=== PATIENT | female | born 1940 | race Caucasian/White ===

== ENCOUNTER → 2017-12-23 09:06 | Outpatient (CLI) | payer MEDICARE, SELFPAY ==
--- NOTE | 2017-12-23 09:11 | MM_ITS ---
MM Dig screening mamm BI w/CAD CAD Screening ORDERING PHYSICIAN : Matt Franz MD PATIENT AGE: 77 years GENDER: Female COMPARISON: Previous mammograms: 20 INDICATION: . No hormones no new complaints. Previous cyst aspiration left breast. Family history. Sister with breast cancer age 68 TECHNIQUE: Standard CC and MLO images were obtained. R2 CAD reviewed. FINDINGS: Moderately dense breast bilaterally . Stable appearing mild asymmetry . No dominant mass nor suspicious calcifications RIGHT BREAST:No new areas of concern LEFT BREAST:. No new areas of concern The mild asymmetry most notable at central left breast cc view and superior breast MLO view appear similar to previous study IMPRESSION: No significant interval change No new areas of concern Follow-up in one year recommended BI-RADS Category: 2 Benign Finding(s) RECOMMENDED FOLLOW-UP: 1YR - 1 YEAR FOLLOW-UP (A letter has been sent to the patient regarding results of the study.)
== END ==
PROVIDERS: Visit Provider Nurse Practitioner Obstetrics & Gynecology
DX: Z12.31 Encounter for screening mammogram for malignant neoplasm of breast (principal)
CPT/HCPCS: 77067

== ENCOUNTER → 2018-05-04 10:31 | Outpatient (CLI) | payer MEDICARE, SELFPAY ==
--- NOTE | 2018-05-04 10:34 | XR_ITS ---
XR DEXA axial skeleton HISTORY: ITS.REASON: POST MENOPAUSAL ORDERING PHYSICIAN: Carlos Manuel Walker MD PATIENT AGE: 78 years COMPARISON: 12/21/2012 FINDINGS: The BMD measured at the right Femoral neck is 0.763 g/cm squared with a T score of -2.0. This is considered Osteopenic according to the World Health Organization criteria. Fracture risk is Moderate. Treatment is advised. L1 L4 density has T score of 0.3. L-spine density has decreased by 1.3% and hip density has decreased by 13.6% compared to the previous exam IMPRESSION: Osteopenia with moderate fracture risk. Treatment recommended. Recommend follow-up exam April 2020
== END ==
PROVIDERS: Family Provider Family Medicine; PCP Family Medicine; Visit Provider Family Medicine
DX: Z78.0 Asymptomatic menopausal state (principal)
CPT/HCPCS: 77080

== ENCOUNTER → 2018-06-23 09:25 | Outpatient (POV) | payer MEDICARE, SELFPAY | PROVIDERS: Family Provider Family Medicine; PCP Family Medicine; Visit Provider Dermatology | DX: Z00.00 Encounter for general adult medical examination without abnormal findings (principal) ==

== ENCOUNTER → 2018-12-30 09:17 | Outpatient (CLI) | payer MEDICARE, SELFPAY ==
--- NOTE | 2018-12-30 09:27 | MM_ITS ---
MM Dig screening mamm BI w/CAD ORDERING PHYSICIAN : Matt Franz MD PATIENT AGE: 78 years GENDER: Female COMPARISON: November, 2016, December 2017 bilateral distal mammogram studies INDICATION: .: Routine Screening Mammogram. No hormones no new complaints Previous cyst aspiration left breast Family history. Sister with breast cancer age 78. TECHNIQUE: Standard CC and MLO images were obtained. R2 CAD reviewed. Additional axillary cc views bilaterally FINDINGS: Mammography is of decreased sensitivity in breast of this dense heterogeneous somewhat nodular character . Areas of dense breast most evident towards upper-outer quadrant and dense breast for this age patient. Age breast bilaterally for age. Minimal nodularity bilaterally most evident at the left breast. However the overall pattern is very similar and is not changed significantly since studies dating back to 2017. RIGHT BREAST:No new areas of significant concern Areas of mild asymmetry appear stable including a small area of parenchymal density inferior right breast. The dense tissue at the lateral breast is similar. Axillary cc view helpful in supporting stability. LEFT BREAST no new areas of significant concern Today's MLO view appears stable when compared to 2016, and 2015 :Stable intramammary node again noted at the far upper-outer quadrant left breast . If any palpable areas arise in either breast low threshold for ultrasound of the warranted and appropriate to to compliment and augment mammography.. -------IMPRESSION: Dense heterogeneous breast pattern again noted, which decreases sensitivity of mammography. No Appreciable change since prior studies. Ongoing Bilateral follow-up in one year recommended . ( Self breast exam encouraged. If any palpable areas arise ultrasound would be useful compliment to mammography in breast of this denser heterogeneous architecture) BI-RADS Category: 2 Benign Finding(s) RECOMMENDED FOLLOW-UP: 1YR 1 YEAR FOLLOW-UP (A letter has been sent to the patient regarding results of the study.) .
== END ==
PROVIDERS: PCP Family Medicine; Visit Provider Nurse Practitioner Obstetrics & Gynecology
DX: Z12.31 Encounter for screening mammogram for malignant neoplasm of breast (principal)
CPT/HCPCS: 77067

== ENCOUNTER → 2019-07-18 14:04 | Outpatient (POV) | payer MEDICARE, SELFPAY | PROVIDERS: Visit Provider Dermatology | DX: Z00.00 Encounter for general adult medical examination without abnormal findings (principal) ==

== ENCOUNTER → 2020-01-01 09:33 | Outpatient (CLI) | payer MEDICARE, SELFPAY ==
--- NOTE | 2020-01-01 09:33 | MM_ITS ---
PROCEDURE: MM DIG SCREENING MAMM BI W/CAD CLINICAL INDICATION: screening xmg There is a history of breast cancer patient's 2 sisters both diagnosed after menopause. COMPARISON: [facility] DIG MAMM-SCREEN [facility] W/CAD from 12/21/2016 [facility] MM Dig screening mamm BI w/CAD from 12/23/2017 [facility] MM Dig screening mamm BI w/CAD from 12/30/2018 TECHNIQUE: Standard CC and MLO images and 3D Tomosynthesis was obtained. R2 CAD reviewed. FINDINGS: Moderate diffuse somewhat heterogenic fibroglandular densities are seen throughout both breast and the findings are fairly symmetrical and bilateral. Glenn images were reviewed showing no suspicious abnormality. There is benign-appearing calcification left breast. No suspicious microcalcifications. IMPRESSION: Moderate somewhat diffuse breast density with no suspicious lesions seen BI-RAD Category: 2 Benign Finding(s) FOLLOW-UP: 1YR 1 Year Follow-up (A letter has been sent to the patient regarding results of the study.) Dictated by: Dr. Osmin Valdez MD 01/02/2020 13:[address] Osmin Valdez MD in [place] 01/02/2020 13:33
== END ==
PROVIDERS: PCP Family Medicine; Visit Provider Nurse Practitioner Obstetrics & Gynecology
DX: Z12.31 Encounter for screening mammogram for malignant neoplasm of breast (principal)
CPT/HCPCS: 77063; 77067

== ENCOUNTER → 2021-01-27 08:18 | Outpatient (CLI) | payer MEDICARE, SELFPAY ==
--- NOTE | 2021-01-27 08:19 | MM_ITS ---
PROCEDURE: MM DIG SCREENING MAMM BI W/CAD Digital Breast Tomosynthesis Included CLINICAL INDICATION: screening xmg There is a history of breast cancer in the patient's sister diagnosed after menopause. COMPARISON: MG [facility] MM Dig screening mamm BI w/CAD from 12/23/2017 MG [facility] MM Dig screening mamm BI w/CAD from 12/30/2018 MG MM DIG SCREENING MAMM BI W/CAD from 01/01/2020 TECHNIQUE: Standard CC and MLO images and 3D Tomosynthesis was obtained. R2 CAD reviewed. FINDINGS: There is a diffusely dense and somewhat heterogenic parenchymal pattern. There is a stable asymmetric benign-appearing density upper-outer quadrant left breast. Glenn images are helpful in this type of dense breast parenchyma. There is no suspicious lesion and no suspicious microcalcifications. IMPRESSION: Stable moderate breast density with no suspicious lesions seen BI-RAD Category: 2 Benign Finding(s) FOLLOW-UP: 1YR 1 Year Follow-up (A letter has been sent to the patient regarding results of the study.) Dictated by: Dr. Osmin Valdez MD 02/01/2021 15:41 Dr. Osmin Valdez MD in [place] 02/01/2021 15:41
== END ==
PROVIDERS: PCP Family Medicine; Visit Provider Nurse Practitioner Obstetrics & Gynecology
DX: Z12.31 Encounter for screening mammogram for malignant neoplasm of breast (principal)
CPT/HCPCS: 77063; 77067

== ENCOUNTER → 2021-05-09 09:41 | Outpatient (CLI) | payer MEDICARE, SELFPAY ==
--- NOTE | 2021-05-09 09:45 | XR_ITS ---
PROCEDURE: XR CHEST 2V CLINICAL HISTORY: R05 COMPARISON: CR CXR CHEST(2 VIEWS-NOT PORTABLE) from 04/27/2013 CR CXR CHEST(2 VIEWS-NOT PORTABLE) from 03/07/2014 FINDINGS: Heart size is normal. Lungs are clear. No pleural effusion or pneumothorax. No acute bony abnormality. IMPRESSION: No acute cardiopulmonary disease. Dictated by: Mehrdad Collins MD 05/09/2021 10:06 Mehrdad Collins MD in [place] 05/09/2021 10:06
== END ==
PROVIDERS: PCP Family Medicine; Visit Provider Family Medicine
DX: R05 Cough (principal)
CPT/HCPCS: 71046

== ENCOUNTER → 2021-11-21 08:53 | Outpatient (CLI) | payer MEDICARE, SELFPAY ==
--- NOTE | 2021-11-21 08:59 | XR_ITS ---
FINAL REPORT TECHNIQUE: Bone densitometry calculations of the lumbar spine, left forearm and right hip were obtained. CLINICAL HISTORY: OSTEOPENIA FINDINGS: Using L1-4, the bone mineral density of the spine is 1.139 g/cm2, corresponding to T-score of 0.8. Using the right hip, the bone mineral density of the femoral neck is 0.707 g/cm2, corresponding to a T-score of -1.3. Using the left forearm, the bone mineral density of the distal third is 0.562 g/cm2, corresponding to a T-score of -2.2. IMPRESSION: Normal bone mineral density of the lumbar spine. This may be artificially elevated due to hypertrophic changes. Osteopenic bone mineral density of the right femoral neck and the left forearm. FRAX = 13 percent risk for major osteoporotic fracture. Reviewed, Interpreted and Dictated by Bobby Alexander MD Transcribed by Spring Dominguez Authenticated by Bobby Alexander MD on 11/25/2021 12:13:48 PM [facility]
--- NOTE | 2021-11-21 09:00 | XR_ITS ---
PROCEDURE INFORMATION: Exam: XR Left Shoulder Exam date and time: 11/21/2021 9:00 AM Age: 81 years old Clinical indication: Pain; Shoulder; Left; Additional info: Pain in left shoulder TECHNIQUE: Imaging protocol: XR Left shoulder. Views: 2 or more views. COMPARISON: CR XR CHEST 2V 05/09/2021 9:55 AM FINDINGS: Bones/joints: No acute fracture or malalignment. Moderate acromioclavicular and glenohumeral joint degenerative changes. Osteopenia. Soft tissues: Normal. IMPRESSION: No acute fracture or malalignment.
== END ==
PROVIDERS: PCP Family Medicine; Visit Provider Family Medicine
DX: M25.512 Pain in left shoulder (principal); M85.89 Other specified disorders of bone density and structure, multiple sites
CPT/HCPCS: 73030; 77080

== ENCOUNTER → 2022-01-29 08:15 | Outpatient (CLI) | payer MEDICARE, SELFPAY ==
--- NOTE | 2022-01-29 08:15 | MM_ITS ---
PROCEDURE INFORMATION: Exam: MG Bilateral Screening 3D Mammography Exam date and time: 01/29/2022 8:15 AM Age: 81 years old Clinical indication: Encounter for screening mammogram for malignant neoplasm of breast; Additional info: Screening xmg. Family history of breast carcinoma. TECHNIQUE: Imaging protocol: Bilateral Screening tomosynthesis and 2D mammography including computer-aided detection (CAD) when performed. COMPARISON: 1. MG MM DIG SCREENING MAMM BI W/CAD 01/27/2021 8:26 AM 2. MG MM DIG SCREENING MAMM BI W/CAD 01/01/2020 9:49 AM 3. MG [facility] MM Dig screening mamm BI w/CAD 12/30/2018 9:34 AM FINDINGS: MAMMOGRAPHY: Breast composition: The breasts are heterogeneously dense, which may obscure small masses. Mass: No suspicious masses. Architectural distortion: No suspicious distortion. Calcifications: No suspicious calcifications. Asymmetric density: None. Skin thickening: None. Axillary adenopathy: None. IMPRESSION: No mammographic evidence of malignancy. Annual screening is recommended unless otherwise clinically indicated. ASSESSMENT: BI-RADS Category 1: Negative
== END ==
PROVIDERS: PCP Family Medicine; Visit Provider Nurse Practitioner Obstetrics & Gynecology
DX: Z12.31 Encounter for screening mammogram for malignant neoplasm of breast (principal)
CPT/HCPCS: 77063; 77067

== ENCOUNTER → 2023-02-04 12:35 | Outpatient (CLI) | payer MEDICARE, SELFPAY ==
--- NOTE | 2023-02-04 12:35 | MM_ITS ---
PROCEDURE INFORMATION: Exam: MG Bilateral Screening 3D Mammography Exam date and time: 02/04/2023 12:50 PM Age: 82 years old Clinical indication: Screening examination TECHNIQUE: Imaging protocol: Bilateral Screening tomosynthesis and 2D mammography including computer-aided detection (CAD) when performed. COMPARISON: 1. MG MM DIG SCREENING MAMM BI W/CAD 01/29/2022 8:23 AM 2. MG MM DIG SCREENING MAMM BI W/CAD 01/27/2021 8:26 AM FINDINGS: MAMMOGRAPHY: Breast composition: The breasts are heterogeneously dense, which may obscure small masses. Mass: None. Architectural distortion: None. Calcifications: No suspicious calcifications. Asymmetric density: None. Skin thickening: None. Axillary adenopathy: None. IMPRESSION: No mammographic evidence of malignancy. Annual screening is recommended unless otherwise clinically indicated. ASSESSMENT: BI-RADS Category 1: Negative
== END ==
PROVIDERS: PCP Family Medicine; Visit Provider Nurse Practitioner Obstetrics & Gynecology
DX: Z12.31 Encounter for screening mammogram for malignant neoplasm of breast (principal)
CPT/HCPCS: 77063; 77067

== ENCOUNTER → 2023-05-11 09:33 | Outpatient (CLI) | payer MEDICARE, SELFPAY ==
--- NOTE | 2023-05-11 09:42 | XR_ITS ---
FINAL REPORT CLINICAL HISTORY: right hip pain, no injury FINDINGS: RIGHT HIP Three views of the right hip demonstrate no acute fracture or dislocation. There are advanced degenerative changes of the right hip. There is subchondral sclerosis and osteophyte formation. Left hip prosthesis is identified. The visualized bony structures are well aligned. No soft tissue abnormality is seen. IMPRESSION: Moderately advanced changes of osteoarthritis. Reviewed, Interpreted and Dictated by Bobby Alexander MD Transcribed by Yvonne Weir Authenticated and . [facility]
== END ==
PROVIDERS: PCP Family Medicine; Visit Provider Family Medicine
DX: M25.551 Pain in right hip (principal)
CPT/HCPCS: 73502

== ENCOUNTER 2024-03-13 15:49 | Outpatient (CLI) | payer MEDICARE, SELFPAY ==
--- NOTE | 2024-03-13 15:51 | MM_ITS ---
PROCEDURE INFORMATION: Exam: MG Bilateral Screening 3D Mammography Exam date and time: 03/13/2024 3:41 PM Age: 83 years old Clinical indication: Screening mammogram TECHNIQUE: Imaging protocol: Bilateral Screening tomosynthesis and 2D mammography including computer-aided detection (CAD) when performed. COMPARISON: 1. MG MM DIG SCREENING MAMM BI W/CAD 02/04/2023 12:50 PM 2. MG MM DIG SCREENING MAMM BI W/CAD 01/29/2022 8:23 AM 3. MG MM DIG SCREENING MAMM BI W/CAD 01/27/2021 8:26 AM 4. MG MM DIG SCREENING MAMM BI W/CAD 01/01/2020 9:49 AM FINDINGS: MAMMOGRAPHY: Breast composition: The breast is heterogeneously dense, which may obscure small masses. Mass: None. Architectural distortion: No new or suspicious architectural distortion. Calcifications: No new or suspicious calcifications are present Asymmetric density: No new or suspicious asymmetric density is present Skin thickening: None. Axillary adenopathy: None. IMPRESSION: No mammographic evidence of malignancy. Recommend annual screening mammography unless otherwise clinically indicated. ASSESSMENT: BI-RADS category 1: Negative.
== END 2024-03-13 23:59 | disposition home or self-care (01) ==
PROVIDERS: PCP Family Medicine; Referring Provider Nurse Practitioner Obstetrics & Gynecology; Visit Provider Nurse Practitioner Obstetrics & Gynecology
DX: Z12.31 Encounter for screening mammogram for malignant neoplasm of breast (principal)
CPT/HCPCS: 77063; 77067

== ENCOUNTER 2025-01-01 13:27 | Outpatient (CLI) | payer MEDICARE, SELFPAY ==
--- NOTE | 2025-01-01 13:34 | CT_ITS ---
FINAL REPORT TECHNIQUE: After the administration of intravenous contrast, axial images through the chest were performed by computed tomography. This study was performed with techniques to keep radiation doses as low as reasonably achievable, (ALARA). Individualized dose reduction techniques using automated exposure control or adjustment of mA and/or kV according to the patient's size were employed. CLINICAL HISTORY: PULMONARY NODULE COMPARISON: None FINDINGS: There is a calcified lingular nodule measuring up to 5 mm compatible with a benign granuloma. The lungs are otherwise clear. There is elevation of the left diaphragm. The upper abdomen shows a benign cyst in the hepatic dome. IMPRESSION: No suspicious pulmonary nodule. Reviewed, Interpreted and Dictated by Raza Holm MD Transcribed by Jacqueline De La Cruz Authenticated and [facility]
[2025-01-01 13:53] LABS: Blood Urea Nitrogen 17 mg/dl (7-17); Estimated Glomerular Filt Rate 80 ml/min (>60); GFR (African American) 97 ML/MIN (>60)
[2025-01-01] MEDS: SODIUM CHLORIDE 0.9% 10ML SYR (RAD ONLY) 10 ML IV (14:20)
[2025-01-01] MEDS: IOPAMIDOL-370 (76%);100ML BOTTLE 75 ML IV (14:20)
== END 2025-01-01 23:59 | disposition home or self-care (01) ==
PROVIDERS: PCP Family Medicine; Visit Provider Family Medicine
DX: R91.8 Other nonspecific abnormal finding of lung field (principal)
CPT/HCPCS: 36415; 71260; 82565; 84520; Q9967

== ENCOUNTER 2025-04-12 16:05 | Outpatient (CLI) | payer MEDICARE, SELFPAY ==
--- OUTSIDE RECORDS SUMMARY | 2025-04-12 16:08 | XMS_ITS ---
Author Organization Unknown Medications Date Medication Dosage DosageUnit StartDate StopDate StopReason Active DoseQuantity DoseUnit Dispense DispenseUnit Refills NdcCode DrugCode PharmacyId IsPrescription MappedMedication Srcstatus 01/28 00:00 :00 BETAMETHASO NE-CLOTRIMA ZOLE 0.05%-1 % cream 04/01/2022 00:00:00 0 15 gm [id number] 5 815 P Not Taking 11/10 00:00 :00 BETAMETHASO NE-CLOTRIMA ZOLE 0.05%-1 % cream 04/01/2022 00:00:00 0 15 gm [id number] 5 815 P Not Taking 05/20 00:00 :00 BETAMETHASO NE-CLOTRIMA ZOLE 0.05%-1 % cream 04/01/2022 00:00:00 0 15 gm [id number] 5 815 P Not Taking 05/15 00:00 :00 BETAMETHASO NE-CLOTRIMA ZOLE 0.05%-1 % cream 04/01/2022 00:00:00 0 15 gm [id number] 5 815 P Not Taking 04/01 00:00 :00 BETAMETHASO NE-CLOTRIMA ZOLE 0.05%-1 % cream 04/01/2022 00:00:00 1 15 gm [id number] 5 815 P Start 12/04 00:00 :00 Clobetasol Propionate 0.05 % Ointment 1 45 Gram 2 [id number] 906 Start 12/04 00:00 :00 Clobetasol Propionate 0.05 % Ointment 0 45 gm 0 [id number] 215 Stop 11/07 00:00 :00 Clobetasol Propionate 0.05 % Ointment 1 45 gm 0 [id number] 215 P Unknown Status 11/07 00:00 :00 Clobetasol Propionate 0.05 % Ointment 1 45 gm 0 [id number] 215 P Taking 06/08 00:00 :00 Clobetasol Propionate 0.05 % Ointment 1 45 gm 0 [id number] 215 P Unknown Status 05/09 00:00 :00 Clobetasol Propionate 0.05 % Ointment 1 45 gm 0 [id number] 215 P Taking 02/16 00:00 :00 Clobetasol Propionate 0.05 % Ointment 1 45 gm 0 [id number] 215 P Taking 01/06 00:00 :00 Clobetasol Propionate 0.05 % Ointment 1 45 gm 0 [id number] 215 P Taking 11/02 00:00 :00 Clobetasol Propionate 0.05 % Ointment 1 45 gm 0 [id number] 215 P Unknown Status 11/02 00:00 :00 Clobetasol Propionate 0.05 % Ointment 1 45 gm 0 [id number] 215 P Taking 05/11 00:00 :00 Clobetasol Propionate 0.05 % Ointment 1 45 gm 0 [id number] 215 P Taking 04/24 00:00 :00 Clobetasol Propionate 0.05 % Ointment 1 45 gm 0 [id number] 215 P Unknown Status 03/26 00:00 :00 CLOBETASOL TOPICAL 0.05% ointment 1 45 gm 0 707 13641 104 P Unknown Status 01/28 00:00 :00 CLOBETASOL TOPICAL 0.05% ointment 0 45 gm 2 707 34869 104 P Not Taking 11/10 00:00 :00 CLOBETASOL TOPICAL 0.05% ointment 0 45 gm 2 707 26634 104 P Not Taking 05/20 00:00 :00 CLOBETASOL TOPICAL 0.05% ointment 0 45 gm 2 707 59882 104 P Not Taking 05/15 00:00 :00 CLOBETASOL TOPICAL 0.05% ointment 0 45 gm 2 707 67704 104 P Not Taking 04/01 00:00 :00 CLOBETASOL TOPICAL 0.05% ointment 1 45 gm 2 707 81470 104 P Taking 11/07 00:00 :00 Clotrimazol e-Betametha sone 1-0.05 % Cream 04/01/2022 00:00:00 0 15 gm [id number] 5 815 P Not Taking 05/09 00:00 :00 Clotrimazol e-Betametha sone 1-0.05 % Cream 04/01/2022 00:00:00 0 15 gm [id number] 5 815 P Not Taking 02/16 00:00 :00 Clotrimazol e-Betametha sone 1-0.05 % Cream 04/01/2022 00:00:00 0 15 gm [id number] 5 815 P Not Taking 01/06 00:00 :00 Clotrimazol e-Betametha sone 1-0.05 % Cream 04/01/2022 00:00:00 0 15 gm [id number] 5 815 P Not Taking 11/02 00:00 :00 Clotrimazol e-Betametha sone 1-0.05 % Cream 04/01/2022 00:00:00 0 15 gm [id number] 5 815 P Not Taking 05/11 00:00 :00 Clotrimazol e-Betametha sone 1-0.05 % Cream 04/01/2022 00:00:00 0 15 gm [id number] 5 815 P Not Taking 04/24 00:00 :00 Clotrimazol e-Betametha sone 1-0.05 % Cream 04/01/2022 00:00:00 0 15 gm [id number] 5 815 P Not Taking 01/28 00:00 :00 DICYCLOMINE 10 mg capsule 10/13/2019 00:00:00 0 20 [id number] 2 601 P Not Taking 11/10 00:00 :00 DICYCLOMINE 10 mg capsule 10/13/2019 00:00:00 0 20 [id number] 2 601 P Not Taking 05/20 00:00 :00 DICYCLOMINE 10 mg capsule 10/13/2019 00:00:00 0 20 [id number] 2 601 P Not Taking 05/15 00:00 :00 DICYCLOMINE 10 mg capsule 10/13/2019 00:00:00 0 20 [id number] 2 601 P Not Taking 04/01 00:00 :00 DICYCLOMINE 10 mg capsule 10/13/2019 00:00:00 0 20 [id number] 2 601 P Not Taking 11/07 00:00 :00 Dicyclomine HCl 10 MG Capsule 10/13/2019 00:00:00 0 20 [id number] 2 601 P Not Taking 05/09 00:00 :00 Dicyclomine HCl 10 MG Capsule 10/13/2019 00:00:00 0 20 [id number] 2 601 P Not Taking 02/16 00:00 :00 Dicyclomine HCl 10 MG Capsule 10/13/2019 00:00:00 0 20 [id number] 2 601 P Not Taking 01/06 00:00 :00 Dicyclomine HCl 10 MG Capsule 10/13/2019 00:00:00 0 20 [id number] 2 601 P Not Taking 11/02 00:00 :00 Dicyclomine HCl 10 MG Capsule 10/13/2019 00:00:00 0 20 [id number] 2 601 P Not Taking 05/11 00:00 :00 Dicyclomine HCl 10 MG Capsule 10/13/2019 00:00:00 0 20 [id number] 2 601 P Not Taking 04/24 00:00 :00 Dicyclomine HCl 10 MG Capsule 10/13/2019 00:00:00 0 20 [id number] 2 601 P Not Taking 11/10 00:00 :00 Estrace 0.1 MG/GM Cream 1 127.5 Gm 3 [id number] 414 P Unknown Status 11/07 00:00 :00 Estrace 0.1 MG/GM Cream 1 127.5 gm 3 24043731 414 P Unknown Status 11/07 00:00 :00 Estrace 0.1 MG/GM Cream 1 127.5 gm 3 [id number] 414 P Taking 05/09 00:00 :00 Estrace 0.1 MG/GM Cream 1 127.5 gm 3 [id number] 414 P Taking 02/16 00:00 :00 Estrace 0.1 MG/GM Cream 1 127.5 gm 3 [id number] 414 P Taking 01/06 00:00 :00 Estrace 0.1 MG/GM Cream 1 127.5 gm 3 [id number] 414 P Taking 11/02 00:00 :00 Estrace 0.1 MG/GM Cream 1 127.5 gm 3 [id number] 414 P Unknown Status 11/02 00:00 :00 Estrace 0.1 MG/GM Cream 1 [id number] 414 Taking 05/11 00:00 :00 Estrace 0.1 MG/GM Cream 1 [id number] 414 Continue 05/11 00:00 :00 Estrace 0.1 MG/GM Cream 1 127.5 gm 1 [id number] 414 Taking 04/24 00:00 :00 Estrace 0.1 MG/GM Cream 1 127.5 gm 1 06453040 414 Taking 04/24 00:00 :00 Estrace 0.1 MG/GM Cream 1 [id number] 414 P Taking 01/28 00:00 :00 ESTRACE VAGINAL 0.1 mg/g cream 1 127.5 gm 1 [id number] 414 Taking 01/28 00:00 :00 ESTRACE VAGINAL 0.1 mg/g cream 1 [id number] 414 P Taking 11/10 00:00 :00 ESTRACE VAGINAL 0.1 mg/g cream 1 [id number] 414 P Continue 11/10 00:00 :00 ESTRACE VAGINAL 0.1 mg/g cream 1 [id number] 414 P Taking 11/10 00:00 :00 ESTRACE VAGINAL 0.1 mg/g cream 1 127.5 gm 1 [id number] 414 Taking 05/20 00:00 :00 ESTRACE VAGINAL 0.1 mg/g cream 1 [id number] 414 P Taking 05/20 00:00 :00 ESTRACE VAGINAL 0.1 mg/g cream 1 127.5 gm 1 [id number] 414 Taking 05/15 00:00 :00 ESTRACE VAGINAL 0.1 mg/g cream 1 67373558 414 P Continue 05/15 00:00 :00 ESTRACE VAGINAL 0.1 mg/g cream 1 127.5 gm 1 [id number] 414 Taking 04/01 00:00 :00 ESTRACE VAGINAL 0.1 mg/g cream 1 127.5 gm 1 07012248 414 Taking 11/07 00:00 :00 Fish Oil 500 MG Capsule 1 816701 30 725 P Continue 11/07 00:00 :00 Fish Oil 500 MG Capsule 1 437679 30 725 P Taking 05/09 00:00 :00 Fish Oil 500 MG Capsule 1 641804 30 725 P Continue 05/09 00:00 :00 Fish Oil 500 MG Capsule 1 190428 30 725 P Taking 02/16 00:00 :00 Fish Oil 500 MG Capsule 1 159146 30 725 P Taking 01/06 00:00 :00 Fish Oil 500 MG Capsule 1 688538 30 725 P Taking 11/02 00:00 :00 Fish Oil 500 MG Capsule 1 472645 30 725 P Continue 11/02 00:00 :00 Fish Oil 500 MG Capsule 1 181129 30 725 Taking 05/11 00:00 :00 Fish Oil 500 MG Capsule 1 396424 30 725 Continue 05/11 00:00 :00 Fish Oil 500 MG Capsule 1 548124 30 725 Taking 04/24 00:00 :00 Fish Oil 500 MG Capsule 1 132995 30 725 Taking 01/28 00:00 :00 FISH OIL 500 mg capsule 1 837264 60 413 Taking 11/10 00:00 :00 FISH OIL 500 mg capsule 1 933855 60 413 Taking 05/20 00:00 :00 FISH OIL 500 mg capsule 1 754070 60 413 Taking 05/15 00:00 :00 FISH OIL 500 mg capsule 1 454550 60 413 Taking 04/01 00:00 :00 FISH OIL 500 mg capsule 1 235817 60 413 Taking 11/07 00:00 :00 Fosamax 70 MG Tablet 1 69597690 104 P Continue 11/07 00:00 :00 Fosamax 70 MG Tablet 1 12 1 43837134 104 Taking 10/09 00:00 :00 Fosamax 70 MG Tablet 1 12 1 10705409 104 Start 10/09 00:00 :00 Fosamax 70 MG Tablet 0 07001745 104 Stop 05/09 00:00 :00 Fosamax 70 MG Tablet 1 16515985 104 Continue 05/09 00:00 :00 Fosamax 70 MG Tablet 1 12 3 46925389 104 Taking 02/16 00:00 :00 Fosamax 70 MG Tablet 1 12 3 12395659 104 Taking 01/06 00:00 :00 Fosamax 70 MG Tablet 1 12 3 65385335 104 Taking 12/13 00:00 :00 Fosamax 70 MG Tablet 1 12 3 78356201 104 Start 12/13 00:00 :00 Fosamax 70 MG Tablet 0 12 0 67085394 104 Stop 11/02 00:00 :00 Fosamax 70 MG Tablet 1 88969453 104 P Continue 11/02 00:00 :00 Fosamax 70 MG Tablet 1 12 0 40688285 104 Taking 10/12 00:00 :00 Fosamax 70 MG Tablet 1 12 0 20448296 104 Start 10/12 00:00 :00 Fosamax 70 MG Tablet 0 51208154 104 Stop 05/11 00:00 :00 Fosamax 70 MG Tablet 1 85345985 104 Continue 05/11 00:00 :00 Fosamax 70 MG Tablet 1 4.06392 12 458314 50 104 Taking 04/24 00:00 :00 Fosamax 70 MG Tablet 1 4.57443 12 468443 50 104 Taking 01/28 00:00 :00 FOSAMAX 70 mg tablet 1 4.33984 12 901152 13 501 Taking 11/30 00:00 :00 FOSAMAX 70 mg tablet 1 4.67376 12 221762 13 501 Start 11/30 00:00 :00 FOSAMAX 70 mg tablet 0 4.40671 12 761242 13 501 Stop 11/10 00:00 :00 FOSAMAX 70 mg tablet 11/26/2021 00:00:00 1 4.14705 12 0934936 3 501 P Taking 05/20 00:00 :00 FOSAMAX 70 mg tablet 11/26/2021 00:00:00 1 4.39458 12 3178882 3 501 P Taking 05/15 00:00 :00 FOSAMAX 70 mg tablet 11/26/2021 00:00:00 1 4.84201 12 9581382 3 501 P Taking 04/01 00:00 :00 FOSAMAX 70 mg tablet 11/26/2021 00:00:00 1 4.97113 12 4123236 3 501 P Taking 01/12 00:00 :00 Gabapentin 400 MG Capsule 01/12/2025 00:00:00 1 180 Capsule 1 37364972 761 P Unknown Status 11/07 00:00 :00 Gabapentin 400 MG Capsule 07/18/2024 00:00:00 1 180 Capsule 1 40447505 761 P Taking 07/18 00:00 :00 Gabapentin 400 MG Capsule 07/18/2024 00:00:00 1 180 Capsule 1 53044761 761 P Unknown Status 05/09 00:00 :00 Gabapentin 400 MG Capsule 1 0090 4666 761 P Taking 02/16 00:00 :00 Gabapentin 400 MG Capsule 1 0090 4666 761 P Taking 01/06 00:00 :00 Gabapentin 400 MG Capsule 1 0090 4666 761 P Taking 11/02 00:00 :00 Gabapentin 400 MG Capsule 1 0090 4666 761 P Continue 11/02 00:00 :00 Gabapentin 400 MG Capsule 07/16/2023 00:00:00 1 180 Capsule 1 02161476 761 P Taking 07/16 00:00 :00 Gabapentin 400 MG Capsule 07/16/2023 00:00:00 1 180 Capsule 1 97464045 761 P Unknown Status 05/11 00:00 :00 Gabapentin 400 MG Capsule 1 0090 4666 761 P Continue 05/11 00:00 :00 Gabapentin 400 MG Capsule 02/15/2023 00:00:00 1 180 Capsule 1 19573460 761 P Taking 04/24 00:00 :00 Gabapentin 400 MG Capsule 02/15/2023 00:00:00 1 180 Capsule 1 [id number] 761 P Unknown Status 02/15 00:00 :00 GABAPENTIN 400 mg capsule 02/15/2023 00:00:00 1 180 Capsule 1 [id number] 761 P Unknown Status 01/28 00:00 :00 GABAPENTIN 400 mg capsule 11/17/2022 00:00:00 1 180 Capsule 0 [id number] 761 P Taking 11/17 00:00 :00 GABAPENTIN 400 mg capsule 11/17/2022 00:00:00 1 180 Capsule 0 50836901 761 P Unknown Status 11/10 00:00 :00 GABAPENTIN 400 mg capsule 1 0090 4666 761 P Continue 11/10 00:00 :00 GABAPENTIN 400 mg capsule 05/15/2022 00:00:00 1 180 1 [id number] 6 761 P Taking 05/20 00:00 :00 GABAPENTIN 400 mg capsule 05/15/2022 00:00:00 1 180 1 2081900 6 761 P Taking 05/15 00:00 :00 GABAPENTIN 400 mg capsule 05/15/2022 00:00:00 1 180 1 [id number] 6 761 P Increase 05/15 00:00 :00 GABAPENTIN 300 mg capsule 02/10/2022 00:00:00 1 180 1 [id number] 6 661 P Taking 04/01 00:00 :00 GABAPENTIN 300 mg capsule 02/10/2022 00:00:00 1 180 1 [id number] 6 661 P Taking 11/07 00:00 :00 Iron 325 MG 1 Taki ng 05/09 00:00 :00 Iron 325 MG 1 Taki ng 02/16 00:00 :00 Iron 325 MG 1 Taki ng 01/06 00:00 :00 Iron 325 MG 1 Taki ng 11/02 00:00 :00 Iron 325 MG 1 Taki ng 05/11 00:00 :00 Iron 325 MG 1 Taki ng 04/24 00:00 :00 Iron 325 MG 1 Taki ng 01/28 00:00 :00 IRON SULFATE 325 mg 1 Takin g 11/10 00:00 :00 IRON SULFATE 325 mg 1 Takin g 05/20 00:00 :00 IRON SULFATE 325 mg 1 Takin g 05/15 00:00 :00 IRON SULFATE 325 mg 1 Takin g 04/01 00:00 :00 IRON SULFATE 325 mg 1 Takin g 04/06 00:00 :00 LEVOTHYROXI NE 100 mcg (0.1 mg) tablet 1 90 Tablet 2 02042566 690 Start 04/06 00:00 :00 LEVOTHYROXI NE 100 mcg (0.1 mg) tablet 0 90 Tablet 2 [id number] 690 Stop 01/28 00:00 :00 LEVOTHYROXI NE 100 mcg (0.1 mg) tablet 1 90 Tablet 2 [id number] 690 Taking 11/10 00:00 :00 LEVOTHYROXI NE 100 mcg (0.1 mg) tablet 1 90 Tablet 2 85813036 690 Taking 10/29 00:00 :00 LEVOTHYROXI NE 100 mcg (0.1 mg) tablet 1 90 Tablet 2 [id number] 690 Start 10/29 00:00 :00 LEVOTHYROXI NE 100 mcg (0.1 mg) tablet 0 90 Tablet 2 75864789 690 Stop 05/20 00:00 :00 LEVOTHYROXI NE 100 mcg (0.1 mg) tablet 1 90 Tablet 2 [id number] 690 Taking 05/15 00:00 :00 LEVOTHYROXI NE 100 mcg (0.1 mg) tablet 1 90 Tablet 2 [id number] 690 Taking 04/21 00:00 :00 LEVOTHYROXI NE 100 mcg (0.1 mg) tablet 1 90 Tablet 2 [id number] 690 Start 04/21 00:00 :00 LEVOTHYROXI NE 100 mcg (0.1 mg) tablet 0 90 Tablet 3 77607726 690 Stop 04/01 00:00 :00 LEVOTHYROXI NE 100 mcg (0.1 mg) tablet 1 90 Tablet 3 [id number] 690 Taking 04/24 00:00 :00 Levothyroxi ne Sodium 100 MCG Tablet 1 90 Tablet 2 [id number] 910 Start 11/07 00:00 :00 Multiple Vitamin - Capsule 1 Taki ng 05/09 00:00 :00 Multiple Vitamin - Capsule 1 Taki ng 02/16 00:00 :00 Multiple Vitamin - Capsule 1 Taki ng 01/06 00:00 :00 Multiple Vitamin - Capsule 1 Taki ng 11/02 00:00 :00 Multiple Vitamin - Capsule 1 Taki ng 05/11 00:00 :00 Multiple Vitamin - Capsule 1 Taki ng 04/24 00:00 :00 Multiple Vitamin - Capsule 1 Taki ng 01/28 00:00 :00 MULTIVITAMI N Multipl e Vitamin s capsule 1 12038666 402 Taking 11/10 00:00 :00 MULTIVITAMI N Multipl e Vitamin s capsule 1 83049478 402 Taking 05/20 00:00 :00 MULTIVITAMI N Multipl e Vitamin s capsule 1 47411468 402 Taking 05/15 00:00 :00 MULTIVITAMI N Multipl e Vitamin s capsule 1 30348289 402 Taking 04/01 00:00 :00 MULTIVITAMI N Multipl e Vitamin s capsule 1 50328653 402 Taking 04/01 00:00 :00 NEURONTIN 300 mg capsule 1 56399 025 700 P Taking 11/07 00:00 :00 Nystatin 513943 UNIT/GM Cream 02/09/2023 00:00:00 0 30 gm 1 6660806 5 415 P Not Taking 05/09 00:00 :00 Nystatin 459687 UNIT/GM Cream 02/09/2023 00:00:00 0 30 gm 1 1855115 5 415 P Not Taking 02/16 00:00 :00 Nystatin 176343 UNIT/GM Cream 02/09/2023 00:00:00 0 30 gm 1 [id number] 5 415 P Not Taking 01/06 00:00 :00 Nystatin 758018 UNIT/GM Cream 02/09/2023 00:00:00 0 30 gm 1 5518941 5 415 P Not Taking 11/02 00:00 :00 Nystatin 111113 UNIT/GM Cream 02/09/2023 00:00:00 1 30 gm 1 5364435 5 415 P Taking 05/11 00:00 :00 Nystatin 832726 UNIT/GM Cream 02/09/2023 00:00:00 1 30 gm 1 2005964 5 415 P Taking 04/24 00:00 :00 Nystatin 424300 UNIT/GM Cream 02/09/2023 00:00:00 1 30 gm 1 4067665 5 415 P Start 02/08 00:00 :00 NYSTATIN TOPICAL 100,000 units/g cream 02/09/2023 00:00:00 1 30 gm 1 9363662 0 530 P Start 12/04 00:00 :00 Synthroid 100 MCG Tablet 1 90 Tablet 1 80091183 411 Start 12/04 00:00 :00 Synthroid 100 MCG Tablet 0 90 Tablet 1 82815747 411 Stop 11/07 00:00 :00 Synthroid 100 MCG Tablet 1 82172 662 411 P Continue 11/07 00:00 :00 Synthroid 100 MCG Tablet 1 90 Tablet 1 37444856 411 Taking 07/13 00:00 :00 Synthroid 100 MCG Tablet 1 90 Tablet 1 47796612 411 Start 07/13 00:00 :00 Synthroid 100 MCG Tablet 0 55986 662 411 Stop 05/09 00:00 :00 Synthroid 100 MCG Tablet 1 27440 662 411 Continue 05/09 00:00 :00 Synthroid 100 MCG Tablet 1 90 Tablet 1 85055962 411 Taking 02/16 00:00 :00 Synthroid 100 MCG Tablet 1 90 Tablet 1 01924291 411 Taking 02/15 00:00 :00 Synthroid 100 MCG Tablet 1 90 Tablet 1 94859524 411 Start 02/15 00:00 :00 Synthroid 100 MCG Tablet 0 25290 662 411 Stop 01/06 00:00 :00 Synthroid 100 MCG Tablet 1 08832 662 411 P Taking 11/02 00:00 :00 Synthroid 100 MCG Tablet 1 35746 662 411 P Continue 11/02 00:00 :00 Synthroid 100 MCG Tablet 1 90 Tablet 1 19531943 411 Taking 09/27 00:00 :00 Synthroid 100 MCG Tablet 1 90 Tablet 1 17424648 411 Start 09/27 00:00 :00 Synthroid 100 MCG Tablet 0 75952 662 411 Stop 05/11 00:00 :00 Synthroid 100 MCG Tablet 1 01969 662 411 P Continue 05/11 00:00 :00 Synthroid 100 MCG Tablet 1 67292 662 411 P Taking 04/24 00:00 :00 Synthroid 100 MCG Tablet 1 67310 662 411 P Taking 01/28 00:00 :00 SYNTHROID 100 mcg (0.1 mg) tablet 1 10780295 419 P Taking 11/10 00:00 :00 SYNTHROID 100 mcg (0.1 mg) tablet 1 94338546 419 P Continue 11/10 00:00 :00 SYNTHROID 100 mcg (0.1 mg) tablet 1 02068710 419 P Taking 05/20 00:00 :00 SYNTHROID 100 mcg (0.1 mg) tablet 1 60475416 419 P Taking 05/15 00:00 :00 SYNTHROID 100 mcg (0.1 mg) tablet 1 43263868 419 P Continue 05/15 00:00 :00 SYNTHROID 100 mcg (0.1 mg) tablet 1 [id number] 419 P Taking 04/01 00:00 :00 SYNTHROID 100 mcg (0.1 mg) tablet 1 27413115 419 P Taking 11/07 00:00 :00 Triamcinolo ne Acetonide 0.1 % Cream 02/09/2023 00:00:00 1 30 gm 1 9406108 0 415 P Taking 05/09 00:00 :00 Triamcinolo ne Acetonide 0.1 % Cream 02/09/2023 00:00:00 1 30 gm 1 [id number] 0 415 P Taking 02/16 00:00 :00 Triamcinolo ne Acetonide 0.1 % Cream 02/09/2023 00:00:00 1 30 gm 1 [id number] 0 415 P Taking 01/06 00:00 :00 Triamcinolo ne Acetonide 0.1 % Cream 02/09/2023 00:00:00 1 30 gm 1 6617528 0 415 P Taking 11/02 00:00 :00 Triamcinolo ne Acetonide 0.1 % Cream 02/09/2023 00:00:00 1 30 gm 1 [id number] 0 415 P Taking 05/11 00:00 :00 Triamcinolo ne Acetonide 0.1 % Cream 02/09/2023 00:00:00 1 30 gm 1 [id number] 0 415 P Taking 04/24 00:00 :00 Triamcinolo ne Acetonide 0.1 % Cream 02/09/2023 00:00:00 1 30 gm 1 0246126 0 415 P Start 02/08 00:00 :00 TRIAMCINOLO NE TOPICAL 0.1% cream 02/09/2023 00:00:00 1 30 gm 1 [id number] 3 159 P Start
--- OUTSIDE RECORDS SUMMARY | 2025-04-12 16:08 | XMS_ITS | Data Portability ---
Author Organization [facility] Address [address] [place] [address] Care Team Providers Care Patient Resource Coordinator Name Role Phone REINA BRADY Primary Care Provider Assessment No assessment recorded. Plan of Treatment Reminders Order Date Submit Date Provider Last Modified By Organization Details Last Modified Time Details Appointments None recorded. Lab None recorded. Referral None recorded. Procedures None recorded. Surgeries None recorded. Imaging XR, hip, unilateral 2023 024 florentin [facility], [address] [place] [address] [place], [address], 4 11:23:06 XR, hip, unilateral 2023 024 florentin [facility], [address] [place] [address] [place], [address], 4 14:58:13 XR, hip, unilateral 2023 024 florentin [facility], [address] [place] [address], [address], 4 11:00:53 XR, hip, unilateral 2023 024 florentin [facility], [address] [place] [address] [place], [address], 4 16:40:12 Medication Orders None recorded. Patient TargetsNo targets recorded. Patient InstructionsNo instructions recorded. Reason for Referral None Reported. Results Created Date Observation Date Name Description Value Unit Range Abnormal Flag Note LastModifiedBy Organization Detail LastModifiedTime 01/03/20 24 01/03/2024 CBC W/O DIFF note See Note Order ing Provi luis: Omar Mullen DO Not Available [address]illi[place], [place], [address], 01/03/2024 15:27:45 01/03/20 24 01/03/2024 CBC W/O DIFF white blood cell 8.5 10e3/ uL 4.5-13 .0 normal Not Available [address] [place], [place], [address], 01/03/2024 15:27:45 01/03/20 24 01/03/2024 CBC W/O DIFF red blood cell 4.47 10e6/ uL 3.80-5 .10 normal Not Available [place] [address], [place], [address], 01/03/2024 15:27:45 01/03/20 24 01/03/2024 CBC W/O DIFF hemoglobin 13.4 g/dL 11.5-1 5.3 normal Not Available [place] [address], [place], [address], 01/03/2024 15:27:45 01/03/20 24 01/03/2024 CBC W/O DIFF hematocrit 39.2 % 34.0-4 6.0 normal Not Available [address] [place], [place], [address], 01/03/2024 15:27:45 01/03/20 24 01/03/2024 CBC W/O DIFF mean cell volume 88 fL 78.0-9 8.0 normal Not Available [address] [place], [place], [address], 01/03/2024 15:27:45 01/03/20 24 01/03/2024 CBC W/O DIFF mean cell HGB 30.0 pg 25.0-3 5.0 normal Not Available [address] , [place], [address], 01/03/2024 15:27:45 01/03/20 24 01/03/2024 CBC W/O DIFF mean cell HGB concentratio n 34.2 g/dL 31.0-3 6.0 normal Not Available [address] , [place], [address], 01/03/2024 15:27:45 01/03/20 24 01/03/2024 CBC W/O DIFF red cell distribution width 12.7 % 11.0-1 5.0 normal Not Available [address] , [place], [address], 01/03/2024 15:27:45 01/03/20 24 01/03/2024 CBC W/O DIFF platelet count 191 10e3/ uL 150-40 0 normal Not Available [address] , [place], [address], 01/03/2024 15:27:45 01/03/20 24 01/03/2024 CBC W/O DIFF performing lab see note - [facility] R [address] [facility] [address] Not Available [address] , [place], [address], 01/03/2024 15:27:45 01/03/20 24 01/03/2024 ELECT ROLYT ES PANEL note See Note Order ing Provi luis: Omar Mullen DO Not Available [address] , [place], [address], 01/03/2024 16:02:38 01/03/20 24 01/03/2024 ELECT ROLYT ES PANEL sodium 144 mmol/ L 136-14 5 normal Not Available [address], [place], [address], 01/03/2024 16:02:38 01/03/20 24 01/03/2024 ELECT ROLYT ES PANEL potassium 3.7 mmol/ L 3.5-5. 1 normal Not Available [address] [address], [place], [address], 01/03/2024 16:02:38 01/03/20 24 01/03/2024 ELECT ROLYT ES PANEL chloride 106 mmol/ L 98-107 normal Not Available [address] [place]illi[place], [place], [address], 01/03/2024 16:02:38 01/03/20 24 01/03/2024 ELECT ROLYT ES PANEL carbon dioxide 27 mmol/ L 24-33 normal Not Available [address] [place], [place], [address], 01/03/2024 16:02:38 01/03/20 24 01/03/2024 ELECT ROLYT ES PANEL anion gap 14.7 mmol/ L 10-20 normal Not Available [address] [place], [address], 01/03/2024 16:02:38 01/03/20 24 01/03/2024 ELECT ROLYT ES PANEL performing lab see note ML - [facility] R [address] [facility] [address] Not Available [address] [place], [address], 01/03/2024 16:02:38 01/03/20 24 01/03/2024 BLOOD UREA NITRO GEN note See Note Order ing Provi luis: Omar Mullen DO Not Available [address] [place], [address], 01/03/2024 16:02:39 01/03/20 24 01/03/2024 BLOOD UREA NITRO GEN blood urea nitrogen 17 mg/dL 7-18 normal Not Available [address] , [place], [address], 01/03/2024 16:02:39 01/03/20 24 01/03/2024 BLOOD UREA NITRO GEN performing lab see note ML - [facility] R [address] [facility] [address] Not Available [address] , [place], [address], 01/03/2024 16:02:39 01/03/20 24 01/03/2024 CREAT ININE W/GFR note See Note Order ing Provi luis: Omra Stan Sebas DO Not Available [address] , [place], [address], 01/03/2024 16:02:39 01/03/20 24 01/03/2024 CREAT ININE W/GFR creatinine 0.93 mg/dL 0.55-1 .02 normal Not Available [address] , [place], [address], 01/03/2024 16:02:39 01/03/20 24 01/03/2024 CREAT ININE W/GFR GFR (estimated) 61 mL/mi n >60 normal [IM TOSHIA NT]: The 2020 CKD-E PI equat ion is now the recom jennifer d stand eduard. This versi on does not inclu de race, as do the 2008 and 2011 CKD-E PI creat inine and creat inine -cyst atin C equat ions. Julianna e note that the eGFR now repor varun is gener ated by the new 2020 CKD-E PI equat ion, which decre ases the eGFR for black s by up to 10% and incre ases the eGFR for non-b lacks by up to 10% in erica rison to the old equat ion. To erica re a legac y eGFR to a curre nt value , a 2009 CKD-E PI calcu lator is easil y gautam hable on the inter net. Calcu lated GFR: This calcu lated GFR is advoc ated by the Natio nal Kidne y Found ation to be used as an indic ator of Chron ic Kidne y Disea se (CKD) . 5 Stage s of Chron ic Kidne y Disea se. Stage 1 90 mL/mi n or more Healt hy kidne ys or Kidne y damag e with xu l or high GFR detai ls Stage 2 60 to 89 mL/mi n Kidne y damag e and mild decre ase in GFR detai ls Stage 3 30 to 59 mL/mi n Moder ate decre ase in GFR detai ls Stage 4 15 to 29 mL/mi n Sever e decre ase in GFR detai ls Stage 5 Less than 15 mL/mi n On dialy sis or Kidne y failu re Patie nt's clini levi statu s must be consi dered for the care of your patie nt. Not Available [address] , [place], [address], 01/03/2024 16:02:39 01/03/20 24 01/03/2024 CREAT ININE W/GFR performing lab see note ML - [facility] COUNT [facility] R [address] [facility] [address] Not Available [address] , [place], [address], 01/03/2024 16:02:39 01/03/20 24 01/03/2024 GLYCO HEMOG LOBIN (HGB A1C) note See Note Order ing Provi luis: Omar Mullen DO Not Available [address] , [place], [address], 01/03/2024 17:14:58 01/03/20 24 01/03/2024 GLYCO HEMOG LOBIN (HGB A1C) glycohemoglo bin (HGB A1C) 5.8 % 4.5-6. 2 normal Predi abete s: 5.7 - 6.4 Diabe thomas: >6.4 Glyce lali contr ol for adult s with diabe thomas: <7.0 Not Available [address] , [place], [address], 01/03/2024 17:14:58 01/03/20 24 01/03/2024 GLYCO HEMOG LOBIN (HGB A1C) performing lab see note ML - [facility] R [address] [place] [address] Not Available [address] , [place], [address], 01/03/2024 17:14:58 01/03/20 24 01/03/2024 FRUCT OSAMI NE note See Note Order ing Provi luis: Omar Stan Sebas DO Not Available [address] , [place], [address], 01/05/2024 14:13:13 01/03/20 24 01/03/2024 FRUCT OSAMI NE fructosamine 236 umol/ L 0-285 Publi shed refer ence inter steven for appar ently healt hy subje cts betwe en age 20 and 60 is 205 - 285 umol/ L and in a poorl y contr olled diabe tic popul ation is 228 - 563 umol/ L with a mean of 396 umol/ L. Perfo rmed At: CB, [facility] n [address] [place], [address]46 Markus mcfarlane, PhD, Phone : [phone] Not Available [address] [place], [address], 01/05/2024 14:13:13 01/03/20 24 01/03/2024 FRUCT OSAMI NE performing lab see note LC2 - [facility]ANDAR T# [phone] [place] [address] Not Available [address] , [place], [address], 01/05/2024 14:13:13 01/18/20 24 01/18/2024 GLUCO SE POINT OF CARE note See Note Order ing Provi luis: Omar Mullen DO Not Available [address] , [place], [address], 01/18/2024 06:52:16 01/18/20 24 01/18/2024 GLUCO SE POINT OF CARE glucose point of care 100 mg/dL 70-99 high Not Available [address] , [place], [address], 01/18/2024 06:52:16 01/18/20 24 01/18/2024 GLUCO SE POINT OF CARE performing lab see note [facility] - [facility] [address] [place] [address] Dr Mercedes [facility] [address] Not Available [address] , [place], [address], 01/18/2024 06:52:16 01/03/20 24 XR, hip, unila teral No observ ation record ed. OPAL [address] [place], [address], 01/03/2024 13:48:00 01/03/20 24 01/03/2024 XR, chest , 2 view [facility] al Medica l Ce Name: CAROLYNN MCNEILL [facility] [place] [employer] Phys: [place] [address] : 1939 Age: 83 Sex: F Acct: [id number] Loc: G.LAB PHONE #: Exam Date: 2023 Status : REG CLI FAX #: Rad# [id number] Unit# [id number] Admit Date: 2023 EXAMS: CPT CODE: [id number] CHEST 2 VIEWS 47305 CLINIC AL INFORM ATION: Preope rative evalua tion. Former smoker COMPAR TG: None. FINDIN GS: PA and latera l projec tions obtain ed. Lungs hypere xpande d withou t focal consol idatio n. Indete rminat e 4 mm nodule in the left midlun g mild accent uation of the centra l bronch i compat ible with chroni c diseas e. Heart size within normal limits . Mild ectasi a of the aorta withou t aneury sm. Modera te scolio sis of the spine. IMPRES MULUGETA: Eviden ce of underl ed chroni c diseas e withou t acute proces s. 2. Indete rminat e 4 mm nodule opacit y left mid lung. Recomm end follow -up CT chest for furthe r charac teriza tion COMMUN ICATIO N: Per this writte n report This report is genera varun using voice recogn ition comput er softwa re. Inadve rtent errors may have occurr ed while dictat ing report . Common sense approa ch is apprec iated and do not hesita te to call for clarif icatio n when necess eve. PAGE 1 Signed Report (BROOKS NUED) [facility] Name: CAROLYNN MCNEILL [employer] [facility] [employer] Phys: Mari[place] [address] : 1939 Age: 83 Sex: F Acct: [id number] Loc: G.LAB PHONE #: Exam Date: 2023 Status : REG CLI FAX #: Rad# [id number] Unit# [id number] Admit Date: 2023 EXAMS: CPT CODE: [id number] CHEST 2 VIEWS 46886 Electr onical ly Signed by Janine Pemberton on 2023 at 1706 Report ed and signed by: ALISHA Pemberton M.D. CC: Omar Mullen DO; Alisha Hunter M.D. Dictat ed Date/T mo: 2023 (170) Techno logist : HOMA MALONE Y Transc ribed Date/T mo: 2023 (170) Transc riptio nist: DR.HAR RODRIGO Glynn onic Signat ure Date/T mo: 2023 (170) Printe d Date/T mo: 2023 (170) BATCH NO: N/A PAGE 2 Signed Report CC'ed Logic: Orderi ng Provid er: SEBAS FRANCIS Attend ing Provid er: SEBAS FRANCIS Referr ing Provid er: SEBAS FRANCIS Consul ting Provid er: SLY Beaver [email or web address] [address] [place], [address], 01/04/2024 10:58:38 01/04/20 24 01/04/2024 CT, chest , w/o contr ast [facility] Med[facility] Ce Name: CAROLYNN MCNEILL [facility] [employer] Phys: Mari[place] [address] : 1939 Age: 83 Sex: F Acct: [id number] Loc: Manish.CT PHONE #: Exam Date: 2023 Status : REG CLI FAX #: [phone] Rad# [id number] Unit# [id number] Admit Date: 2023 EXAMS: CPT CODE: [id number] CT CHEST W/[place] [address] CT CHEST WITHOU T CONTRA ST, 024: CLINIC AL HISTOR Y: Nodule in the left mid lung on recent chest radiog raph in an 83-yea r-old female with prior tobacc o use COMPAR TG: PA and latera l chest, 024 TECHNI QUE: Multip le axial images throug h the chest were obtain ed withou t the use of intrav enous contra st. This data was used to perfor m laboy l and sagitt al recons tructi ons. GE's Auto mA automa varun exposu re contro l was utiliz ed for radiat ion dose reduct ion. FINDIN GS: The heart is normal in size with mild laboy ry artery calcif icatio ns. The thorac ic aorta is normal in calibe r. There are granul omatou s calcif icatio ns in the left hilum withou t pathol ogic intrat horaci c lympha denopa thy. There is a subcen timete r right thyroi d nodule requir ing no follow -up There are findin gs of small airway s diseas e bilate rally. There is a calcif ied granul lyn within the lingul a accoun ting for the findin gs on recent chest radiog raph. There is a 4 mm left lower lobe nodule on image 67 with adjace nt ground glass diseas e. There are multip le additi onal 2-3 mm pulmon eve nodule s, as marked . There is no suspic ious pulmon eve nodule . There is no pleura l fluid and the airway s are patent . Granul omatou s calcif icatio ns involv e the spleen . There is a 1.5 cm right hepati c cyst. The visual ized upper abdomi nal struct ures are otherw ise unrema rkable . The patien t is osteop enic with mild to modera te multil evel degene rative disc diseas e of the visual ized spine. There is no suspic ious osseou s lesion IMPRES MULUGETA: 1. Calcif ied granul lyn within the lingul a, accoun ting for the findin gs on recent chest radiog raph 2. 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 Accord ing to the Fleisc hner criter ia, no follow -up is necess eve *Recom mendat ions for follow up/man agemen t of pulmon eve nodule s will be based on the [employer] y criter ia NOTE: Any incide ntally noted liver lesion s equal to or less than 5 PAGE 1 Signed Report (BROOKS NUED) [facility] Name: CHARITO CAROLYNN [facility]AD [employer] [facility] [employer] Phys: Sebas [place] [address] : 1939 Age: 83 Sex: F Acct: [id number] Loc: MassimoCT PHONE #: [phone] Exam Date: 2023 Status : REG CLI FAX #: Rad# [id number] Unit# [id number] Admit Date: 2023 EXAMS: CPT CODE: [id number] CT CHEST W/[place] [address] mm, cystic lesion s in the kidney s less than 1 cm, and/or adrena l lesion s equal to or less than 1 cm, genera lly are consid ered highly likely to be benign and no additi onal evalua tion is recomm ended, unless specif ically mentio polo in the impres mulugeta. Electr onical ly Signed by TONY WHITT MD on 2023 at 1531 Report ed and signed by: TONY WHITT MD CC: Omar Mullen DO; Alisha Hunter M.D. Dictat ed Date/T mo: 2023 (1531) Techno logist : HOMA MALONE Y Transc ribed Date/T mo: 2023 (1531) Transc riptio nist: DR.HAG WANG Electr onic Signat ure Date/T mo: 2023 (1531) Printe d Date/T mo: 2023 (1534) BATCH NO: N/A PAGE 2 Signed Report CC'ed Logic: Orderi ng Provid er: SEABS FRANCIS Attend ing Provid er: SEBAS FRANCIS Referr ing Provid er: SEBAS FRANCIS Consul ting Provid er: SLY Beaver [email or web address] [place], [address], 01/05/2024 13:10:20 01/27/20 24 XR, hip, unila teral No observ ation record ed. OPAL Daniel [address], [address], 02/02/2024 10:03:01 02/28/20 24 XR, hip, unila teral No observ ation record ed. [address] [place], [address], 02/28/2024 10:52:04 06/02/20 24 XR, hip, unila teral No observ ation record ed. [address] [place], [address], 06/02/2024 09:18:56 Result Notes None recorded. Procedures Surgical History Date Name Laterality Status Provider Name and Address Organization Details Recorded Time Other completed Vicky CHEW - L [facility] - [place] [facility] [place] 01/03/2024 13:19:41 Back Surgery completed Vicky Liliane CHEW - [facility] - [facility] 01/03/2024 13:19:41 Joint Replacement completed Piqorais RAREFORM - [facility] - [facility] 01/03/2024 13:19:41 Hip Surgery completed Piqorais RAREFORM - [facility] - [facility] 01/03/2024 13:19:41 Imaging Results Imaging Date Name Status LastModified by [facility] Details LastModified Time 01/03/2024 XR, hip, unilateral completed [address] [place], [address], 01/03/2024 13:48:00 01/03/2024 XR, chest, 2 view completed [place] [address] [place], [address], 01/04/2024 10:58:38 01/04/2024 CT, chest, w/o contrast completed [place] [address], [address], 01/05/2024 13:10:20 01/27/2024 XR, hip, unilateral completed OPAL Daniel [facility] [address] [place], [address], 02/02/2024 10:03:01 02/28/2024 XR, hip, unilateral completed OPAL Daniel [facility] [address] [place], [address], 02/28/2024 10:52:04 06/02/2024 XR, hip, unilateral completed OPAL Daniel [facility] [address] [place], [address], 06/02/2024 09:18:56 Procedure Notes None recorded. Medical Equipment None Reported. Allergies No known drug allergies Medications Name Sig Start Date Stop Date Status Note LastModified by Organization Details LastModified Time alendronate 70 mg tablet active Not Available Not Available Not Available gabapentin 400 mg capsule active Not Available Not Available Not Available triamcinolo ne acetonide 0.1 % topical cream APPLY CREAM EXTERNALL Y THREE TIMES DAILY active Not Available Not Available No t Available levothyroxi ne 100 mcg tablet active Not Available Not Available Not Available nystatin 100,000 unit/gram topical cream APPLY CREAM TOPICALLY THREE TIMES DAILY 01/03 completed Not Available Not Available Not Available clobetasol 0.05 % topical ointment active Not Available Not Available Not Available hydrocortis one 2.5 % topical ointment APPLY OINTMENT EXTERNALL Y TO AFFECTED AREA DIRECTED TWICE DAILY active Not Available Not Available No t Available levothyroxi ne 100 mcg capsule active Not Available Not Available Not Available Vitals Date Recorded Body temperature Heart rate Respiratory rate Systolic blood pressure Diastolic blood pressure Provider Name and Address Organization Details Last Updated DateTime 4 98 [degF] 80 /min 18 /min 132 mm[Hg] 70 mm[Hg] Vicky Sinclair JACKIE [facility] [place] 4 13:36:09 Social History Question Answer Notes LastModified by Organizat ion Details LastModified Time Tobacco Smoking Status Never Smoker Vicky Momin null, [place] - [facility] 01/03/2024 13:19:37 Do You Have An Advance Directive? No Information not available 01/03/2024 Are You Blind Or Do You Have Difficulty Seeing? No Information not available 01/03/2024 Are You Passively Exposed To Smoke? No Information not available 01/03/2024 Sex: Female Functional Status Question Answer Note LastModified by Organizat ion Details LastModified Time Do you use any illicit or recreational drugs? No Information not available 01/03/2024 Mental Status None recorded. Family History Nothing Reported. Medical History Condition Response Other Y Gynecological HistoryNo gynecological history recorded. Obstetrics History GPAL:G 0 P 0 0 0 0 Immunizations Vaccine Type Date Status Note Provider Nam e and Address Organization Details Recorded Time COVID-19, mRNA, LNP-S, PF, 100 mcg/0.5mL dose or 50 mcg/0.25mL dose 1 completed Vicky Momin null, [place] - [facility] [place] 01/03/2024 13:36:25 COVID-19, mRNA, LNP-S, PF, 100 mcg/0.5mL dose or 50 mcg/0.25mL dose 1 completed Vicky Momin null, [place] - [facility] [place] 01/03/2024 13:36:25 COVID-19, mRNA, LNP-S, PF, 100 mcg/0.5mL dose or 50 mcg/0.25mL dose 1 completed Vicky Momin null, [place] - [facility] [place] 01/03/2024 13:36:25 COVID-19, mRNA, LNP-S, bivalent, PF, 50 mcg/0.5 mL or 25mcg/0.25 mL dose 2 completed Vicky Momin null, [place] - [facility] [place] 01/03/2024 13:36:25 COVID-19, mRNA, LNP-S, PF, 50 mcg/0.5 mL 3 completed Vicky Momin null, [place] - [facility] [place] 01/03/2024 13:36:25 pneumococcal polysaccharide PPV23 7 completed Vicky Liliane null, [place] - [facility] - [place] [facility] [place] 01/03/2024 13:36:25 Tdap 7 completed Vicky Liliane null, [place] - [facility] - [place] [facility] [place] 01/03/2024 13:36:25 Influenza, high-dose, trivalent, PF 0 completed Vicky Liliane null[place] [facility] [place] [facility] [place] 01/03/2024 13:36:25 Influenza, high-dose, trivalent, PF 9 completed Vicky Liliane null[place] [facility] - [place] [facility] [place] 01/03/2024 13:36:25 Influenza, high-dose, trivalent, PF 7 completed Vicky Liliane null[place] [facility] - [place] [facility] [place] 01/03/2024 13:36:25 Influenza, high-dose, trivalent, PF 8 completed Vicky Liliane null[place] [facility] [place] [facility] [place] 01/03/2024 13:36:25 Past Encounters Encounter ID Performer Location Encounter Start Date Encounter Closed Date Diagnosis/Indication Diagnosis SNOMED-CT Code Diagnosis ICD10 Code Diagnosis Note [id number] DO ELLE WILLIS[address] [address] 01/03/2024 12:57:54 01/03/2024 14:44:52 Osteoarthritis of right hip joint 9586269257 37218 M16.11 Pain of ri ght hip joint 3825314020 93194 M25.551 [id number] DO ELLE WILLIS [facility] [address] [place] [address] 02/02/2024 09:28:57 02/02/2024 10:37:05 History of total replacement of right hip joint 9329813409 81786 Z96.641 [id number] DO ELLE WILLIS [address] [address] 02/28/2024 10:28:17 02/28/2024 11:14:59 History of total replacement of right hip joint 1274206339 30666 Z96.736 [id number] OMAR MULLEN DO MV Jesse bower [facility] [address] [place] [address] 06/02/2024 09:11:02 06/02/2024 09:54:44 History of total replacement of right hip joint 7819051882 26381 Z96.641 Health Concerns Section Related Observation LastModified by Organization Detai ls LastModified Time None Recorded Concern Status LastModified by Organization Details LastModified Time None Recorded Advance Directives Directive N: Payers Insurance Date Sequence Insurance Name Policy Number Policy Salter Covered Member ID Salter Member ID Guarantor Name 06/06/2024 2 [employer] (MEDICARE SUPPLEMENT) Carolynn Mcneill [id number] Carolynn Mcneill 05/31/2024 1 [place] Carolynn Mcneill [id number] Carolynn Mcneill 05/31/2024 [facility] Carolynn Mcneill [id number] Carolynn Mcneill Notes Date Note Type Note Provider Name and Address Organization Details Recorded Time 01/03/2024 text/html Pt is here for r t hip pain and groin pain. Onset about 2-3 years ago. She did have XRays at [facility]. Have reports but no disc. Doing new Xrays today. Her Xrays showed moderate OA of the rt hip. She does not want to try inj's. She is open to replacement.-[id number] OMAR MULLEN DO [address] [place] [address],[address], [place], [address], [facility] - NT - [facility] 01/03/2024 19:03:23 02/02/2024 text/html Patient presents in office 2 weeks post op RIGHT anterior total hip arthroplasty, DOS: 01/18/24. Is utilizing walker. Dressing removed for assessment. Incision line well approximated without signs of infection. States physical therapy daily at skilled nursing and doing well. PT notes in room. Has not required any pain medicaton x2 days. X-rays in office today. [id number] OMAR MULLEN DO [address] [place] [address],[address], [place], [address], [place] [facility] [place] 02/02/2024 11:01:06 02/28/2024 text/html 6 weeks post op Right anterior total Hip arthroplasty; DOS 2.27.24Patient is doing wellPT coming to house and is going wellNo longer using cane/walker to ambulateIncision healedNot taking anything for coanP1HR OMAR MULLEN, DO [address] [place] [address] Drive,[address], [place], [address], [facility] - LPJACKIE [facility] [place] 02/28/2024 19:47:50 06/02/2024 text/html Patient is here today for clinical exam of right hip. She is 5 months post op and states she is doing great E4 JS OMAR MULLEN, DO [address], [place], [address], [facility] - LPNT [facility] [place] 06/05/2024 07:57:24 OBGyn Episode No OBEpisode recorded.
--- NOTE | 2025-04-12 16:30 | MM_ITS ---
PROCEDURE INFORMATION: Exam: MG Bilateral Screening 3D Mammography Exam date and time: 04/12/2025 4:09 PM Age: 85 years old Clinical indication: Screening. Paternal aunt had breast cancer. TECHNIQUE: Imaging protocol: Bilateral Screening tomosynthesis and 2D mammography including computer-aided detection (CAD) when performed. COMPARISON: 1. MG MM DIG SCREENING MAMM BI W/CAD 03/13/2024 3:41 PM 2. MG MM DIG SCREENING MAMM BI W/CAD 02/04/2023 12:50 PM 3. MG MM DIG SCREENING MAMM BI W/CAD 01/29/2022 8:23 AM 4. MG MM DIG SCREENING MAMM BI W/CAD 01/27/2021 8:26 AM FINDINGS: MAMMOGRAPHY: Breast composition: The breasts are heterogeneously dense, which may obscure small masses. Mass: No suspicious mass. Architectural distortion: None. Calcifications: No suspicious calcifications. Asymmetric density: None. Skin thickening: None. Axillary adenopathy: None. IMPRESSION: No mammographic evidence of malignancy. Annual screening is recommended unless otherwise clinically indicated. ASSESSMENT: BI-RADS Category 1: Negative.
== END 2025-04-12 23:59 | disposition home or self-care (01) ==
LOC: RAD 16:07
PROVIDERS: PCP Family Medicine; Visit Provider Nurse Practitioner Obstetrics & Gynecology
DX: Z12.31 Encounter for screening mammogram for malignant neoplasm of breast (principal); R92.333 Mammographic heterogeneous density, bilateral breasts; Z80.3 Family history of malignant neoplasm of breast
CPT/HCPCS: 77063; 77067